=== PATIENT | female | born 1970 | race Two or more races ===

== ENCOUNTER → 2018-05-31 | Emergency (ER) | payer OTHER ==
[~2018-05-31] VITALS: Ht 160 cm; Wt 67.1 kg
[~2018-05-31] MED LIST: AMOX1TAB12 PO; CIPRO500 MG PO; INTESTINEX680 MG PO; LEVSIN/SL0.125 MG PO; PAXIL20 MG PO; PROTONIX40 MG PO
== END | disposition home or self-care (01) ==
LOC: ER 11:27
DX: M77.51 Other enthesopathy of right foot and ankle (principal)

== ENCOUNTER 2019-01-02 08:32 | Outpatient (CLI) | payer OTHER | END 2019-01-02 08:36 | disposition home or self-care (01) | LOC: SONOGRAMA 08:32 → MAMO-SONO 08:45 | DX: E04.2 Nontoxic multinodular goiter (principal) ==

== ENCOUNTER 2019-02-05 11:05 | Inpatient (IN) | payer OTHER ==
[~2019-02-05] VITALS: Ht 162.6 cm; Wt 68.5 kg
--- NOTE | 2019-02-05 12:32 | NUR ---
PTE VIENE BAJO REFERIDO PARA EL DR. ULND PTE CON DOLOR ABDOMINAL. PTE [place] MEDICAMENTO PARA PRESION ARIAN NO RECUERDA NOMBRE. PTE ALERTA ORIENTADO Y CONSCIENTE X3
--- NOTE | 2019-02-05 13:27 | NUR ---
SE ORIENTA A PTE SOBRE PROCESO DE VENOPUNCION, KASH DE MUESTRAS & ADMINISTRACION DE MED. PTE REFIERE ENTENDER INF YUMIKO POR RN PRECIADO.
--- NOTE | 2019-02-05 15:43 | NUR ---
PT ALERTA Y ORIETNADA X3 ESFERAS SE RECIBE EN AURE CON BARANDAS ELEVADAS Y FRENOS COLOCADOS. HEPARIN LOCK E IVLFUIDS PATENTES. PENDIENTE CT ABDMINIAL Y PELVICO A LAS 4PM. PT T[place] TX, TRANQUILO Y SIN DIFICULTAD RESPIRATORIA. SE MANTIENE BAJO OBSERVACION POR CAMBIOS EN EVANGELIST.
--- NOTE | 2019-02-06 07:39 | NUR ---
SE RECIBE PTE DEL TURNO ANTERIOR EN AURE CON BARANDAS ELEVADAS CON IVFS PATENTE,ALERTA, ORIENTADA POR LEONID. NO PRESENTA DOLOR AL MOMENTO SE MANTIENE EN OBSERVACION Y PENDIENTE A CONSULTA CON EL .
[2019-02-10] MEDS ORDERED: FLAGYL500MG PO (13:31)
[2019-02-10] MEDS ORDERED: CIPRO500 MG PO (13:31)
[2019-02-10] MEDS ORDERED: INTESTINEX680 M1 PO (13:32)
== END 2019-02-10 14:15 | disposition home or self-care (01) | DRG 392 ==
LOC: ER 11:05 → MEDI 02-06 09:11
PROVIDERS: ADMIT Internal Medicine
PROC: BW21Y0Z Computerized Tomography (CT Scan) of Abdomen and Pelvis using Other Contrast, Unenhanced and Enhanced (ICD-10-PCS; principal; 2019-02-06)
DX: K57.32 Diverticulitis of large intestine without perforation or abscess without bleeding (principal); N39.0 Urinary tract infection, site not specified; R91.8 Other nonspecific abnormal finding of lung field; D72.828 Other elevated white blood cell count; K63.5 Polyp of colon; R31.29 Other microscopic hematuria

== ENCOUNTER 2019-04-03 13:36 | Inpatient (IN) | payer OTHER ==
[~2019-04-03] VITALS: Ht 160 cm; Wt 67.1 kg
[~2019-04-03 13:36] MED LIST changes: +FLAGYL500MG PO; +INTESTINEX680 M1 PO
[2019-04-03] MEDS ORDERED: INTESTINEX680 M1 PO (13:56)
[2019-04-03] MEDS ORDERED: ATACAND4 MG PO (13:56)
[2019-04-07] MEDS ORDERED: HYOSCYAMINE0.125 M1 SL (09:47)
[2019-04-07] MEDS ORDERED: ACIDOPHILUS-PE1 EAC2 PO (09:48)
[2019-04-07] MEDS ORDERED: PANTOPRAZOLE SO40 MG PO (09:48)
[2019-04-07] MEDS ORDERED: CIPRO500 MG PO (09:49)
[2019-04-07] MEDS ORDERED: FLAGYL500MG PO (09:49)
== END 2019-04-07 14:07 | disposition home or self-care (01) | DRG 378 ==
LOC: ER 13:36 → SEC-K 04-04 11:17 → SURG 04-04 11:17 → MEDJ 04-04 13:59 → SEC-K 04-04 14:07 → SURG 04-04 15:33
PROVIDERS: ADMIT Internal Medicine
DX: K57.33 Diverticulitis of large intestine without perforation or abscess with bleeding (principal); N39.0 Urinary tract infection, site not specified; K57.31 Diverticulosis of large intestine without perforation or abscess with bleeding; K63.5 Polyp of colon; K62.1 Rectal polyp

== ENCOUNTER 2019-06-04 09:45 | Day surgery (SDC) | payer OTHER ==
[~2019-06-04 09:45] MED LIST changes: +ACIDOPHILUS-PE1 EAC2 PO; +ATACAND4 MG PO; +HYOSCYAMINE0.125 M1 SL; +PANTOPRAZOLE SO40 MG PO
== END 2019-06-04 14:40 | disposition home or self-care (01) ==
LOC: AMB-ENDOS 09:45
DX: K63.5 Polyp of colon (principal); K57.30 Diverticulosis of large intestine without perforation or abscess without bleeding

== ENCOUNTER 2019-10-03 08:57 | Outpatient (CLI) | payer OTHER | END 2019-10-03 11:59 | disposition home or self-care (01) | LOC: RAD 08:57 | DX: K57.32 Diverticulitis of large intestine without perforation or abscess without bleeding (principal) ==

== ENCOUNTER 2019-10-07 08:30 | Inpatient (IN) | payer OTHER ==
[~2019-10-07] VITALS: Ht 160 cm; Wt 64.4 kg
[2019-10-16] MEDS ORDERED: KETO10TA2 PO (08:21)
[2019-10-16] MEDS ORDERED: LEVSIN/SL0.125 MG SL (08:22)
[2019-10-16] MEDS ORDERED: AMOX1TAB5 PO (08:25)
== END 2019-10-16 12:30 | disposition home or self-care (01) | DRG 331 ==
LOC: SURH 10-12 07:00 → O/R 10-12 08:12 → SURG 10-12 08:12 → O/R 10-12 08:30 → SURH 10-12 08:30 → SURG 10-12 18:36
PROVIDERS: ADMIT Surgery
PROC: 0DJD8ZZ Inspection of Lower Intestinal Tract, Via Natural or Artificial Opening Endoscopic (ICD-10-PCS; 2019-10-12)
PROC: 0DTN4ZZ Resection of Sigmoid Colon, Percutaneous Endoscopic Approach (ICD-10-PCS; principal; 2019-10-12 07:00)
DX: K57.32 Diverticulitis of large intestine without perforation or abscess without bleeding (principal); I10 Essential (primary) hypertension

== ENCOUNTER 2021-03-02 08:10 | Day surgery (SDC) | payer OTHER ==
[~2021-03-02 08:10] MED LIST changes: +AMOX1TAB5 PO; +KETO10TA2 PO; +LEVSIN/SL0.125 MG SL
== END 2021-03-02 12:40 | disposition home or self-care (01) ==
LOC: AMB-ENDOS 08:10
PROVIDERS: ATTEND Surgery
DX: K62.89 Other specified diseases of anus and rectum (principal); Z20.822 Contact with and (suspected) exposure to COVID-19